=== PATIENT | male | born 1960 | race African-American/Black ===

== ENCOUNTER 2018-09-11 20:40 | Emergency (ER) | payer OTHER ==
[~2018-09-11] VITALS: Ht 172.7 cm; Wt 81.8 kg
[2018-09-11] MEDS ORDERED: SODIUM CHLORIDE 0.9% 1,000 ML IV ONE (21:14)
[2018-09-11] MEDS ORDERED: ONDANSETRON HCL 4MG/2ML INJ IV STA (21:14)
[2018-09-11 21:29] LABS: BASOPHILS % 0.7 % (0.0-2.0); EOSINOPHILS % 8.9 % (0.0-5.0); HEMATOCRIT. 40.2 % (42.0-52.0); HEMOGLOBIN. 13.7 g/dL (14.0-18.0); LYMPHOCYTES % 40.1 % (20.0-50.0); MEAN CORPUSCULAR HEMOGLOBIN 33.4 pg (28.0-32.0); MEAN PLATELET VOLUME 7.3 fl (7.4-10.4); MONOCYTES % 11.1 % (2.0-8.0); NEUTROPHILS % 39.2 % (40.0-76.0); PLATELET 259 x1000/uL (130-400); RED CELL DISTRIBUTION WIDTH 13.4 % (11.6-14.6)
[2018-09-11 21:35] LABS: CHLORIDE 108 mEq/L (98-107)
[2018-09-11 21:37] LABS: PROTHROMBIN TIME 10.7 sec (9.6-11.0)
[2018-09-12 01:41] VITALS: BP 110/71
== END 2018-09-12 01:44 | disposition home or self-care (01) ==
LOC: ER 20:40
DX: R55 Syncope and collapse (principal); R10.9 Unspecified abdominal pain; I10 Essential (primary) hypertension; F17.210 Nicotine dependence, cigarettes, uncomplicated
CPT/HCPCS: 36415; 70450; 80053; 83690; 84484; 85025; 85610; 93005; 96361; 96374; 99284; J2405; J7030; Z7610